=== PATIENT | male | born 1990 | race Caucasian/White ===

== ENCOUNTER 2016-09-30 21:42 | Emergency (ER) | payer OTHER ==
[~2016-09-30] VITALS: Ht 152.4 cm; Wt 10.0 kg
[2016-09-30 21:45] VITALS: BP 144/98; PULSE 82; TEMP 36.7; O2SAT 96; Ht 152.4 cm; Wt 10.0 kg
[2016-09-30] MEDS ORDERED: XYLOCAINE 1%/SOD BICARB 20 ML VIAL INFIL ONE (22:00)
[2016-09-30] MEDS ORDERED: GELATIN SPONGE 12-7MM ONE (22:32)
--- NOTE | 2016-09-30 22:46 | EMERGENCY ROOM VISIT NOTE ---
History First contact with patient: 21:48 Chief Complaint: LACERATION/CUT (NON-SUTURE) Stated Complaint: CUT RT RING FINGER,WC Nursing Triage Summary: pt cut right ring finger on knife History of Present Illness The patient is a 26 year old male who presents to the Emergency Room with complaints of a laceration to his right ring finger at work this evening. He accidentally cut his finger with a knife. He thought at it was just a small piece of skin, but when he tried to pull on it, he noticed that it was a lot deeper. He does report moderate bleeding from the wound. He rates his discomfort a 3 out of 10. The patient is left-hand dominant. Tetanus immunization is up-to-date. Review of Systems 6 system review was performed and was negative except for pertinent positives and negatives as indicated in history of present illness Past Medical/Surgical History Medical Problems: (1) Alcohol Abuse-Unspec (2) Anxiety State Nos (3) Depressive Disorder Nec (4) Drug Abuse Nec-Unspec (5) Epiglottitis (6) Suicidal Ideation (7) Tobacco Use Disorder Surgical Problems: (1) No history of previous surgery Family History Unremarkable Social History Smoking Status: Current Some Day Smoker Alcohol Use: occasionally Drug Use: none Housing Status: lives with family Occupation Status: employed Current/Historical Medications No Active Prescriptions or Reported Meds Allergies Coded Allergies: No Known Allergies (Unverified , 07/12/11) Physical Exam Vital Signs Date Time Temp Pulse Resp B/P Pulse Ox O2 Delivery O2 Flow Rate FiO2 09/30/16 21:45 36.7 82 18 144/98 96 Room Air Physical Exam CONSTITUTIONAL: Healthy and well nourished. Alert and oriented X 3 with positive affect. HEENT: Normocephalic, atraumatic. Pupils equal, round and reactive. NECK: Full active range of motion without discomfort. MUSCULOSKELETAL: Examination of the right fourth fingertip shows a 1.5 cm flap laceration. There is moderate bleeding from the wound. There is no nail plate involvement. INTEGUMENTARY: No rash or other significant dermatologic conditions noted. NEUROLOGIC: No focal neurologic deficits noted. Right fourth fingertip is sensory intact. Medical Decision & Procedures Procedure Wound evaluation and laceration repair was performed under digital block anesthesia after receiving verbal consent from the patient. Using buffered 1% lidocaine without epinephrine, good digital block anesthesia was administered. The finger was in painted with iodine, and allowed to dry. The wound was then copiously pressure irrigated with normal saline. Further evaluation of the wound shows that the flap is a vascular. I therefore suggested that it be excised. The wound was sharply excised using a #11 scalpel. A Gelfoam pressure dressing was then applied. The patient tolerated the procedure well. ED Course Patient history and physical exam were performed. Nurse's notes were reviewed. Laceration evaluation was performed under digital block anesthesia. The flap was ultimately excised because it was avascular. A Gelfoam pressure dressing was applied. The patient was provided specific written and verbal wound care instructions. He was encouraged to intermittently apply ice and elevate the hand as needed for pain. Ibuprofen or Tylenol if needed for additional pain relief. Watch for any signs of developing infection, and return to the emergency department for any further wound concerns. The patient was happy with plan of care, and denied any pain at the time of discharge. Impression Primary Impression: Laceration of right ring finger Additional Impression: Work related injury Departure Information Dispostion Home / Self-Care Prescriptions No Active Prescriptions or Reported Meds Forms HOME CARE DOCUMENTATION FORM, IMPORTANT VISIT INFORMATION Patient Instructions [facility] Additional Instructions Keep dressing in place for 48 hrs, then remove. Soak dressing/foam in water until it falls off easily, then clean wound daily, cover with an antibiotic ointment and keep covered until it heals. Return for any signs of infection ( increasing redness, swelling, drainage). Ice and elevate for swelling and pain. Ibuprofen 600 mg and Tylenol 1000 mg every 6 hrs for pain. FOR WORK: Must keep wound clean, dry and covered while working. Problem Qualifiers
== END 2016-09-30 22:51 | disposition home or self-care (01) ==
LOC: C.EDB 21:43 → C.EDD 22:51
DX: S61.214A Laceration without foreign body of right ring finger without damage to nail, initial encounter (principal); Y99.0 Civilian activity done for income or pay; W26.0XXA Contact with knife, initial encounter; F41.9 Anxiety disorder, unspecified; F32.9 Major depressive disorder, single episode, unspecified; F17.210 Nicotine dependence, cigarettes, uncomplicated; F19.10 Other psychoactive substance abuse, uncomplicated

== ENCOUNTER 2016-12-25 14:47 | Emergency (ER) | payer SELFPAY ==
[~2016-12-25] VITALS: Ht 177.8 cm; Wt 105.6 kg
[2016-12-25 14:49] VITALS: TEMP 36.4; Ht 177.8 cm; Wt 105.6 kg
[2016-12-25] MEDS ORDERED: SODIUM CHLORIDE 0.9% 1000ML 1,000 ML IV STA (15:11)
[2016-12-25] MEDS ORDERED: ONDANSETRON INJ 2 MG/ML 2 ML VIAL IV STA (15:11)
[2016-12-25] MEDS ORDERED: KETOROLAC TROMETHAMINE 30 MG/ML VIAL IV STA (15:11)
[2016-12-25 15:28] LABS: BASO % 0.3 %; BASO ABS # 0.02 K/uL (0-0.2); COMPLETE YES; EOS % 6.4 %; HEMATOCRIT 47.7 % (42-52); IG% 0.3 %; LYMPH % 31.4 %; LYMPH ABS # 2.06 K/uL (1.2-3.4); MEAN CELL VOLUME 92.6 fL (80-100); MEAN CORPUSCULAR HEMOGLOBIN 32.8 pg (25-34); MEAN CORPUSCULAR HGB CONC 35.4 g/dl (32-36); MEAN PLATELET VOLUME 10.9 fL (7.4-10.4); MONO % 7.2 %; NEUT % 54.4 %; PLATELET COUNT 239 K/uL (130-400); RED BLOOD COUNT 5.15 M/uL (4.7-6.1); WHITE BLOOD COUNT 6.56 K/uL (4.8-10.8)
[2016-12-25 15:32] LABS: URINE APPEARANCE CLEAR (CLEAR); URINE BILIRUBIN NEG (NEG); URINE COLOR DK YELLOW; URINE NITRITE NEG (NEG); URINE PH 7.5 (4.5-7.5); URINE SPECIFIC GRAVITY 1.026 (1.000-1.030); UROBILINOGEN NEG (NEG); ZZUR CULT IF INDIC CLEAN CATCH NO
[2016-12-25 15:41] LABS: MANUAL MICROSCOPIC REQUIRED? NO; REVIEW REQ? NO
[2016-12-25 15:43] LABS: SULFASALICYLIC ACID POS (NEG)
[2016-12-25 15:59] LABS: ALKALINE PHOSPHATASE 61 U/L (45-117); ALT/SGPT 58 U/L (12-78); AST/SGOT 40 U/L (15-37); BLOOD UREA NITROGEN 14 mg/dl (7-18); BUN/CREATININE RATIO 11.6 (10-20); CALCIUM 9.1 mg/dl (8.5-10.1); CARBON DIOXIDE 24 mmol/L (21-32); CHLORIDE 106 mmol/L (98-107); GLUCOSE 98 mg/dl (70-99); SODIUM 138 mmol/L (136-145)
[2016-12-25] MEDS ORDERED: MoRPHine SULFATE 4 MG/ML 1 ML CARP\\VIAL IV STA (16:33)
--- NOTE | 2016-12-25 16:52 | DIAGNOSTIC IMAGING REPORT ---
LUMBAR SPINE RADIOGRAPHS CLINICAL HISTORY: Lower back pain. COMPARISON: None FINDINGS: Alignment of the lumbar spine is anatomic. Vertebral body heights are maintained. There is no fracture or suspicious lesion. Disc spaces are preserved. IMPRESSION: Unremarkable lumbar spine radiographs. Electronically signed by: Brandon De La Torre M.D. 12/25/2016 4:51 PM Dictated Date/Time: 12/25/2016 4:50 PM
[2016-12-25 18:08] VITALS: BP 128/86; PULSE 73; O2SAT 98
--- NOTE | 2016-12-25 20:29 | EMERGENCY ROOM VISIT NOTE ---
History Report prepared by Ronni: Ashanti Pritchett Under the Supervision of: Dr. Brian Blank D.O. First contact with patient: 14:54 Chief Complaint: FLANK PAIN Stated Complaint: BACK PAIN-POSSIBLY KIDNEYS History of Present Illness The patient is a 26 year old male who presents to the Emergency Room with complaints of constant right back pain for the past 5 days. For the past 2 days , the pain has spread into his left back. He currently rates his discomfort as a 6/10 in severity at rest. The pain worsens with movement, twisting, turning or bending. He denies any dysuria, hematuria, chest pain, SOB, nausea, vomiting , weakness, groin pain, or testicular pain. He denies any recent trauma or illness. He denies any history of kidney stones. He admits to alcohol and tobacco use. He smokes 0.5 ppd. He denies drug use. No weakness or numbness in his legs. Able to urinate, and move his bowels. Source of History: patient Onset: 5 days Position: other (right flank) Symptom Intensity: 6/10 Quality: other (pain) Timing: constant Modifying Factors (Worsening): movement Associated Symptoms: No chest pain, No SOB, No nausea, No vomiting, No weakness Note: Pt reports left flank pain. Pt denies dysuria, hematuria, groin pain, testicular pain. Review of Systems See HPI for pertinent positives & negatives. A total of 10 systems reviewed and were otherwise negative. Past Medical & Surgical Medical Problems: (1) Alcohol Abuse-Unspec (2) Anxiety State Nos (3) Depressive Disorder Nec (4) Drug Abuse Nec-Unspec (5) Suicidal Ideation (6) Tobacco Use Disorder Surgical Problems: (1) No history of previous surgery Family History Diabetes mellitus Hypertension Social History Smoking Status: Current Every Day Smoker Alcohol Use: occasionally Drug Use: none Housing Status: lives with family Occupation Status: employed Current/Historical Medications No Active Prescriptions or Reported Meds Allergies Coded Allergies: No Known Allergies (Unverified , 07/12/11) Physical Exam Vital Signs Date Time Temp Pulse Resp B/P (MAP) Pulse Ox O2 Delivery O2 Flow Rate FiO2 12/25/16 18:08 73 16 128/86 98 12/25/16 16:45 71 18 140/92 97 Room Air 12/25/16 14:49 36.4 102 16 142/104 96 Room Air Physical Exam GENERAL: sitting up in bed, no acute distress, non-toxic EYE EXAM: normal conjunctiva OROPHARYNX: no exudate, no erythema, lips, buccal mucosa, and tongue normal and mucous membranes are moist NECK: supple, no nuchal rigidity, no adenopathy, non-tender LUNGS: Clear to auscultation. Normal chest wall mechanics HEART: no murmurs, S1 normal and S2 normal ABDOMEN: abdomen soft, non-tender, normo-active bowel sounds, no masses, no rebound or guarding. BACK: Tenderness to palpation to the lower lumbar paraspinal region bilaterally which was slightly worse on the right than left. SKIN: no rashes and no bruising UPPER EXTREMITIES: upper extremities are grossly normal. LOWER EXTREMITIES: No pitting edema. NEURO EXAM: Normal sensorium, cranial nerves II-XII grossly intact, normal speech, no weakness of arms, no weakness of legs. Medical Decision & Procedures ER Provider Diagnostic Interpretation: Xray results as stated below per my and the radiologist's interpretation: LUMBAR SPINE RADIOGRAPHS CLINICAL HISTORY: Lower back pain. COMPARISON: None FINDINGS: Alignment of the lumbar spine is anatomic. Vertebral body heights are maintained. There is no fracture or suspicious lesion. Disc spaces are preserved. IMPRESSION: Unremarkable lumbar spine radiographs. Electronically signed by: Brandon De La Torre M.D. 12/25/2016 4:51 PM Dictated Date/Time: 12/25/2016 4:50 PM Laboratory Results 12/25/16 15:00 Red Blood Count 5.15, Mean Corpuscular Volume 92.6, Mean Corpuscular Hemoglobin 32.8, Mean Corpuscular Hemoglobin Concent 35.4, Mean Platelet Volume 10.9, Neutrophils (%) (Auto) 54.4, Lymphocytes (%) (Auto) 31.4, Monocytes (%) (Auto) 7.2, Eosinophils (%) (Auto) 6.4, Basophils (%) (Auto) 0.3, Neutrophils # (Auto) 3.57, Lymphocytes # (Auto) 2.06, Monocytes # (Auto) 0.47, Eosinophils # (Auto) 0.42, Basophils # (Auto) 0.02 12/25/16 15:00 Test 12/25/16 14:55 12/25/16 15:00 Urine Color DK YELLOW Urine Appearance CLEAR (CLEAR) Urine pH 7.5 (4.5-7.5) Urine Specific Fletcher 1.026 (1.000-1.030) Urine Protein 1+ (NEG) Urine Glucose (UA) NEG (NEG) Urine Ketones TRACE (NEG) Urine Occult Blood NEG (NEG) Urine Nitrite NEG (NEG) Urine Bilirubin NEG (NEG) Urine Urobilinogen NEG (NEG) Urine Leukocyte Esterase TRACE (NEG) Urine WBC (Auto) 1-5 /hpf (0-5) Urine RBC (Auto) 0-4 /hpf (0-4) Urine Hyaline Casts (Auto) 1-5 /lpf (0-5) Urine Epithelial Cells (Auto) 5-10 /lpf (0-5) Urine Bacteria (Auto) NEG (NEG) White Blood Count 6.56 K/uL (4.8-10.8) Red Blood Count 5.15 M/uL (4.7-6.1) Hemoglobin 16.9 g/dL (14.0-18.0) Hematocrit 47.7 % (42-52) Mean Corpuscular Volume 92.6 fL (80-100) Mean Corpuscular Hemoglobin 32.8 pg (25-34) Mean Corpuscular Hemoglobin Concent 35.4 g/dl (32-36) Platelet Count 239 K/uL (130-400) Mean Platelet Volume 10.9 fL (7.4-10.4) Neutrophils (%) (Auto) 54.4 % Lymphocytes (%) (Auto) 31.4 % Monocytes (%) (Auto) 7.2 % Eosinophils (%) (Auto) 6.4 % Basophils (%) (Auto) 0.3 % Neutrophils # (Auto) 3.57 K/uL (1.4-6.5) Lymphocytes # (Auto) 2.06 K/uL (1.2-3.4) Monocytes # (Auto) 0.47 K/uL (0.11-0.59) Eosinophils # (Auto) 0.42 K/uL (0-0.5) Basophils # (Auto) 0.02 K/uL (0-0.2) RDW Standard Deviation 41.5 fL (36.4-46.3) RDW Coefficient of Variation 12.3 % (11.5-14.5) Immature Granulocyte % (Auto) 0.3 % Immature Granulocyte # (Auto) 0.02 K/uL (0.00-0.02) Anion Gap 8.0 mmol/L (3-11) Est Creatinine Clear Calc Drug Dose 112.5 ml/min Estimated GFR () 95.5 Estimated GFR (Non- 82.4 BUN/Creatinine Ratio 11.6 (10-20) Calcium Level 9.1 mg/dl (8.5-10.1) Total Bilirubin 0.8 mg/dl (0.2-1) Direct Bilirubin mg/dl (0-0.2) Aspartate Amino Transf (AST/SGOT) 40 U/L (15-37) Alanine Aminotransferase (ALT/SGPT) 58 U/L (12-78) Alkaline Phosphatase 61 U/L (45-117) Total Protein 7.7 gm/dl (6.4-8.2) Albumin 4.0 gm/dl (3.4-5.0) Lipase 141 U/L (73-393) Chemistry Specimen Hemolysis Laboratory results per my review. Medications Administered Medications (Trade) Dose Ordered Sig/Katherin Route Start Time Stop Time Status Last Admin Dose Admin Sodium Chloride 1,000 ml @ 999 mls/hr Q1H1M STAT IV 12/25/16 15:11 12/25/16 16:11 DC 12/25/16 15:22 999 MLS/HR Ondansetron HCl (Zofran Inj) 4 mg NOW STAT IV 12/25/16 15:11 12/25/16 15:12 DC 12/25/16 15:22 4 MG Ketorolac Tromethamine (Toradol Inj) 30 mg NOW STAT IV 12/25/16 15:11 12/25/16 15:13 DC 12/25/16 15:22 30 MG Morphine Sulfate (MoRPHine SULFATE INJ) 4 mg NOW STAT IV 12/25/16 16:33 12/25/16 16:34 DC 12/25/16 16:57 4 MG ED Course ED COURSE: Vital signs were reviewed and showed tachycardia. The patients medical record was reviewed The above diagnostic studies were performed and reviewed. ED treatments and interventions as stated above. 1459: The patient was evaluated by the student at this time. We discussed findings, differentials, and treatment plan. 1506: The patient was evaluated in room C12B. A complete history and physical examination was performed. 1511: Toradol Inj 30 mg IV, Zofran Inj 4 mg IV, NSS 1000 ml @ 999 mls/hr IV. 1615: The student reevaluated the patient. He is requesting something for pain. 1633: Morphine Sulfate 4 mg IV. 1733: Upon reevaluation, the patient is resting comfortably. I discussed my findings with the patient and he understands and agrees with the treatment plan. Based on the patients age, coexisting illnesses, exam and lab findings the decision to treat as an outpatient was made. The patient remained stable while under my care. The patient appeared well at the time of discharge. Medical Decision Differential diagnoses includes but is not limited to gastritis, peptic ulcer disease, GERD, gallbladder disease, pancreatitis, small bowel obstruction, acute coronary syndrome, pericarditis, ischemic bowel, irritable bowel disease, irritable bowel syndrome, appendicitis, diverticulitis, malignancy, hernia, urinary tract infection, torsion, perforation, trauma, infectious. Patient is a 26-year-old male who presents the ER for 5 days worth of lower back pain. Pain is reproducible on exam in the lower lumbar paraspinal region. No trauma. Pain is worsened with twisting turning or bending. Appears musculoskeletal. CBC along with BMP, LFTs, bilirubin and lipase was unremarkable. UA was unremarkable. Patient is given IM Toradol and a small dose of morphine. He is completely neurologically intact and was discharged follow-up with his PCP with musculoskeletal back pain. Discussed with Pt concerning signs and symptoms to watch out for. Pt was instructed to follow up with their PCP and discussed with the patient their option to return to the ED at anytime for persistent or worsening symptoms. The appropriate anticipatory guidance and out-patient management, including indications for return to the emergency department, were explained at length to the patient and understood. Medication Reconcilliation Current Medication List: was personally reviewed by me Blood Pressure Screening Patient's blood pressure: Normal blood pressure Blood pressure disposition: Did not require urgent referral Impression Primary Impression: Lower back pain Scribe Attestation The scribe's documentation has been prepared under my direction and personally reviewed by me in its entirety. I confirm that the note above accurately reflects all work, treatment, procedures, and medical decision making performed by me. Departure Information Dispostion Home / Self-Care Prescriptions No Active Prescriptions or Reported Meds Referrals No Doctor, Assigned (PCP) Forms HOME CARE DOCUMENTATION FORM, IMPORTANT VISIT INFORMATION Patient Instructions Back Pain - [facility], [facility] Additional Instructions Please follow up with your primary care doctor or if you are a student, [facility] with in the next 24 hours. Any worsening of your symptoms, please return to the ED immediately. This includes any fevers greater than 100.4, worsening pain, chest pain, shortness breath, persistent nausea, vomiting, unable to eat or drink, weakness or numbness in arms or legs, numbness in her groin, unable to urinate, unable to move your bowels, or any other concerning signs or symptoms from your standpoint. You were given medications during this visit that will inhibit your ability to drive, operate machinery and work. Please do NOT drive, operate machinery, drink alcohol or work for the next 12hrs. You were found to have a blood pressure greater than 120 systolic over 90 diastolic. Due to the new Medicare guidelines, we are now recommending that you follow up with your primary care doctor in regards to this elevated blood pressure. Please take Motrin or Tylenol as needed for pain. Problem Qualifiers Primary Impression: Lower back pain Chronicity: acute Back pain laterality: bilateral Sciatica presence: without sciatica Qualified Codes: M54.5 - Low back pain
== END 2016-12-25 18:09 | disposition home or self-care (01) ==
LOC: C.EDB 14:48 → C.EDC 18:09
DX: M54.5 Low back pain (principal); F41.9 Anxiety disorder, unspecified; F32.9 Major depressive disorder, single episode, unspecified; F10.10 Alcohol abuse, uncomplicated; Z83.3 Family history of diabetes mellitus; Z82.49 Family history of ischemic heart disease and other diseases of the circulatory system; F17.200 Nicotine dependence, unspecified, uncomplicated